=== PATIENT | female | born 1970 | race Hispanic/Latino ===

== ENCOUNTER 2025-01-26 01:13 | Emergency (ER) | payer OTHER ==
[~2025-01-26] VITALS: Ht 162.6 cm; Wt 63.5 kg
[2025-01-26 01:46] VITALS: PULSE 63; RESP 16; TEMP 98
[2025-01-26] MEDS: FLUORESCEIN SOD(OPTH) 1 MG STRP OP ONE (03:10)
[2025-01-26] MEDS: TETRACAINE HCL 0.5% OPTH SOLN 4 ML BTL OP ONE (03:10)
[2025-01-26] MEDS: EYE IRRIGATION (OPTH) 120 ML BTL OP ONE (03:11)
[2025-01-26] MEDS ORDERED: TOBRAMYCIN/DEXAMETHASONE(OPTH) 3.5 GM TUBE OP ONE ×2 (03:45→04:00)
[2025-01-26 03:57] VITALS: BP 146/67; PULSE 82; RESP 20; O2SAT 99
[2025-01-26] MEDS ORDERED: TOBRADEX EYE O3.5 GM OD (03:57)
== END 2025-01-26 04:02 | disposition home or self-care (01) ==
LOC: ER 01:43
DX: S05.01XA Injury of conjunctiva and corneal abrasion without foreign body, right eye, initial encounter (principal); X58.XXXA Exposure to other specified factors, initial encounter; Y92.89 Other specified places as the place of occurrence of the external cause; E03.9 Hypothyroidism, unspecified; Z86.14 Personal history of Methicillin resistant Staphylococcus aureus infection
CPT/HCPCS: 99282